=== PATIENT | male | born 1995 | race Two or more races ===

== ENCOUNTER 2021-12-30 15:18 | Emergency (ER) | payer MEDICAID ==
[~2021-12-30] VITALS: Ht 175.3 cm; Wt 59.1 kg
[2021-12-30 15:31] VITALS: BP 134/78
[2021-12-30] MEDS ORDERED: ACETAMINOPHEN 325 MG TABLET PO ONE (18:15)
== END 2021-12-30 18:39 | disposition home or self-care (01) ==
LOC: EMS 15:18
DX: S09.90XA Unspecified injury of head, initial encounter (principal); S29.9XXA Unspecified injury of thorax, initial encounter; X58.XXXA Exposure to other specified factors, initial encounter; Y93.89 Activity, other specified; Y92.89 Other specified places as the place of occurrence of the external cause; Y99.8 Other external cause status
CPT/HCPCS: 70450; 71046; 99284